=== PATIENT | male | born 1980 | race African-American/Black ===

== ENCOUNTER 2024-02-02 17:56 | Emergency (ER) | payer OTHER, MEDICAID, SELFPAY ==
[2024-02-02 18:12] VITALS: BP 145/84; PULSE 73; RESP 16; TEMP 37.2; O2SAT 99
--- NOTE | 2024-02-02 18:47 | ED.GENADULT ---
HPI - General Adult General Chief complaint: Upper Respiratory Infection Stated complaint: runny nose,diarrhea,bodyaches,HOFF Source: patient Mode of arrival: ambulatory Limitations: no limitations History of Present Illness HPI narrative: Patient presents for evaluation of sick symptoms for last 2-3 days. Symptoms include fever, chills, nausea, diarrhea, sinus congestion, rhinorrhea, sore throat, productive cough of yellow/brown sputum and wheezing. No vomiting or chest pain. No recent sick contacts to his knowledge. He smokes 1/4 ppd. He tends to get bronchitis once per year. Related Data Allergies Allergy/AdvReac Type Severity Reaction Status Date / Time No Known Allergies Allergy Verified 02/02/24 18:38 Review of Systems Review of Systems: CONSTITUTIONAL: reports fever, chills, sweats EYES: Denies visual changes, redness, or discharge. ENT: reports sinus congestion, rhinorrhea, sore throat. Denies otalgia. CARDIOVASCULAR: Denies chest pain, palpitations, or edema. RESPIRATORY: Reports cough. Denies shortness of breath. GASTROINTESTINAL: Reports nausea and diarrhea. Denies vomiting. GENITOURINARY: Denies dysuria or hematuria. SKIN: Denies rash or itching. MUSCULOSKELETAL: Denies back pain, joint pain, or myalgia. NEUROLOGIC: Denies headache, numbness, dizziness, or weakness. PSYCHIATRIC: Denies anxiety or depression. FORMERLY [facility], 1928–1983 Past Medical History Medical History (Updated 02/02/24 @ 19:25 by Jorge Nguyen, [employer], ) No pertinent past medical history Surgical History Surgical History (Reviewed 02/02/24 @ 18:50 by Jorge Nguyen, [facility], ) History of umbilical hernia repair Family History Family History (Reviewed 02/02/24 @ 18:50 by Jorge Nguyen [facility], ) Mother Family history non-contributory Social History Social History (Reviewed 02/02/24 @ 18:51 by Jorge Nguyen [facility], ) Smoking packs per day: 0.25 Smoking cigarettes per day: 5.0 Smoking status: Current every day smoker Substance use: never Living arrangements: with family Gender identity (if verbalized by the patient): Male Spiritual care concerns: No Exam Narrative: GENERAL: appears acutely ill but nontoxic. HEAD: Normocephalic, atraumatic. EYES: PERRLA and EOMI. ENT: Nares clear. Clear rhinorrhea noted. Mucous membranes moist. Oropharynx without tonsillar hypertrophy exudate or other lesions. Bilateral TMs pearly matos nonbulging NECK: Supple. No adenopathy or masses. No carotid bruits or JVD CHEST: Clear to auscultation. No respiratory distress. No wheezes rales or rhonchi HEART: Regular rate and rhythm. No murmur heard. Normal peripheral pulses. ABDOMEN: Soft, nontender, nondistended, normal active bowel sounds. EXTREMITIES: Normal range of motion. No edema. SKIN: Warm, dry, no rash. NEURO: No focal deficits. Alert and oriented x3. PSYCH: Normal mood and affect. Course Course Emergency Course: This is a 43-year-old male who presented for evaluation of sick symptoms. Strep, COVID, influenza were all negative. Exam is consistent with acute viral syndrome. Will discharge with prednisone due to wheezing that he is experiencing and night. Increase hydration. [id number] agents for symptom management. Follow up with primary provider. Go to the ER for worsening symptoms. Patient in agreement with plan of care. Level of Care: Express Care Visit Vital Signs Vital signs: Vital Signs Temperature 37.2 C 02/02/24 18:12 Pulse Rate 73 02/02/24 18:12 Respiratory Rate 16 02/02/24 18:12 Blood Pressure 145/84 H 02/02/24 18:12 Pulse Oximetry 99 02/02/24 18:12 Oxygen Delivery Room Air 02/02/24 18:12 Temperature 37.2 C 02/02/24 18:12 Pulse Rate 73 02/02/24 18:12 Respiratory Rate 16 02/02/24 18:12 Blood Pressure 145/84 H 02/02/24 18:12 Pulse Oximetry 99 02/02/24 18:12 Oxygen Delivery Room Air 02/02/24 18:12 Medical Decision Making Vital S
== END 2024-02-02 19:31 | disposition home or self-care (01) ==
PROVIDERS: Emergency Provider Nurse Practitioner
DX: B34.9 Viral infection, unspecified (principal); Z20.822 Contact with and (suspected) exposure to COVID-19; F17.210 Nicotine dependence, cigarettes, uncomplicated
CPT/HCPCS: 87081; 87426; 87804; 87880; 99203; G0463